=== PATIENT | female | born 1985 | race African-American/Black ===

== ENCOUNTER 2017-06-14 10:48 | Day surgery (SDC) | payer OTHER ==
[2017-06-14] MEDS ORDERED: ANCEF VIAL 1 GM ONE (10:52)
[2017-06-14] MEDS ORDERED: NS 50 ML IV + SPIKE MINIBAG* 50 ML IV ONE (10:52)
[2017-06-14] MEDS ORDERED: D5 1/2 NS 1000 ML 1,000 ML IV SCH ×2 (11:00→13:17)
[2017-06-14] MEDS ORDERED: PEPCID 20 MG IV PREMIX* 20 MG/50 ML BAG IV ONE (11:03)
[2017-06-14] MEDS ORDERED: REGLAN INJ 10 MG VIAL ONE (11:03)
[2017-06-14] MEDS: D5 1/2 NS 1000 ML 1,000 ML IV ONE (11:10)
[2017-06-14 11:15] VITALS: BMI 38.2
[2017-06-14] MEDS: ANCEF VIAL 1 GM 1 GM in NS 50 ML IV + SPIKE MINIBAG* 50 ML IV PRN ×2 (11:20→11:37)
[2017-06-14 11:23] LABS: BASOPHILS # (AUTO) 0.1 X10^3/uL (0.0-0.1); BASOPHILS % (AUTO) 1.2 % (0.2-1.0); EOSINOPHILS # (AUTO) 0.2 x10^3/uL (0.0-0.2); EOSINOPHILS % (AUTO) 2.1 % (0.9-2.9); HEMATOCRIT 36.4 % (36.0-47.0); HEMOGLOBIN 12.3 g/dL (12.0-16.0); LYMPHOCYTES # (AUTO) 2.8 X10^3/uL (1.3-2.9); LYMPHOCYTES % (AUTO) 25.8 % (21.0-51.0); MEAN CORPUSCULAR HEMOGLOBIN 29.6 pg (27.0-34.0); MEAN CORPUSCULAR HGB CONC 33.7 g/dL (33.0-35.0); MEAN CORPUSCULAR VOLUME 87.8 fL (80.0-100.0); MEAN PLATELET VOLUME 7.5 fL (7.4-11.0); MONOCYTES # (AUTO) 0.8 x10^3/uL (0.3-0.8); MONOCYTES % (AUTO) 7.9 % (0.0-13.0); NEUTROPHILS # (AUTO) 6.8 x10^3/uL (2.2-4.8); PLATELET COUNT 403 X10^3/uL (150.0-450.0); RED BLOOD COUNT 4.14 X10^6/uL (3.5-5.4); RED CELL DISTRIBUTION WIDTH 14.7 % (11.6-16.5); WHITE BLOOD COUNT 10.7 X10^3/uL (3.6-10.0)
[2017-06-14] MEDS ORDERED: FENTANYL INJ 250 mcg ONE (11:24)
[2017-06-14 11:36] LABS: ALANINE AMINOTRANSFERASE 20 Units/L (12-78); ALBUMIN 3.3 g/dL (3.4-5.0); ALKALINE PHOSPHATASE 65 Units/L (46-116); ASPARTATE AMINO TRANSFERASE 22 Units/L (15-37); BLOOD UREA NITROGEN 8 mg/dL (7-18); CALCIUM 8.7 mg/dL (8.5-10.1); CARBON DIOXIDE 27.4 mmol/L (21-32); CHLORIDE 102 mmol/L (98-107); COR CA(FOR HYPOALB) 9.3 mg/dL (8.5-10.1); CREATININE 0.83 mg/dL (0.55-1.02); SODIUM 136 mmol/L (136-145); TOTAL PROTEIN 7.1 g/dL (6.4-8.2); eGFR BLACK RACES > 60 (>60); eGFR NON BLACK RACES > 60 (>60)
[2017-06-14] MEDS ORDERED: BICITRA 30 ML PO ONE (11:37)
[2017-06-14] MEDS ORDERED: NS IRRIGATION 1000 ML 1,000 ML IR ONE (12:05)
[2017-06-14 12:10] LABS: BILIRUBIN,URINE NEGATIVE (NEGATIVE); BLOOD/HEMOGLOBIN,URINE 1+ (NEGATIVE); GLUCOSE, URINE NEGATIVE (NEGATIVE); KETONES,URINE NEGATIVE (NEGATIVE); LEUKOCYTE ESTERASE ,URINE NEGATIVE (NEGATIVE); NITRITES,URINE NEGATIVE (NEGATIVE); PROTEIN,URINE 1+ (NEGATIVE); UROBILINOGEN,URINE 1+ (NORMAL)
[2017-06-14] MEDS ORDERED: DECADRON INJ ONE (12:11)
[2017-06-14] MEDS ORDERED: LR 1000 ML IV 1,000 ML IV ONE (12:11)
[2017-06-14 12:28] LABS: APPEARANCE,URINE SLIGHTLY HAZY (CLEAR); COLOR,URINE YELLOW (YELLOW); RBC,URINE RARE /HPF (NEGATIVE)
[2017-06-14 12:29] LABS: AMORPHOUS SEDIMENT,UR TRACE /HPF (NEGATIVE); BACTERIA,URINE TRACE /HPF (NEGATIVE); SQUAMOUS EPITHELIAL CELL,UR MODERATE /HPF (NEGATIVE)
[2017-06-14] MEDS ORDERED: DILAUDID INJ ONE (12:45)
[2017-06-14] MEDS ORDERED: REGLAN INJ 10 MG VIAL IVP PRN (12:48)
[2017-06-14] MEDS ORDERED: BENADRYL INJ 50 MG VIAL IVP PRN ×2 (12:48→13:17)
[2017-06-14] MEDS ORDERED: PHENERGAN INJ 25 MG IVP PRN (12:48)
[2017-06-14] MEDS ORDERED: ZOFRAN INJ 4 MG VIAL IVP PRN ×2 (12:48→13:17)
[2017-06-14] MEDS: DILAUDID INJ IVP PRN ×2 (12:51→12:56)
[2017-06-14] MEDS ORDERED: DILAUDID INJ IVP ONE (13:01)
[2017-06-14] MEDS ORDERED: TORADOL 30 MG VIAL ONE (13:11)
[2017-06-14] MEDS ORDERED: NORCURON INJ 10 MG VIAL ONE (15:33)
[2017-06-14] MEDS ORDERED: DIPRIVAN VIAL ONE (15:33)
[2017-06-14] MEDS ORDERED: NEOSTIGMINE INJ ONE (15:33)
[2017-06-14] MEDS ORDERED: VERSED ONE (15:33)
[2017-06-14] MEDS ORDERED: LTA KIT LIDOCAINE 4% ONE (15:33)
[2017-06-14] MEDS ORDERED: SUPRANE IN ONE (15:33)
[2017-06-14] MEDS ORDERED: XYLOCAINE 2 % (PLAIN) ONE (15:33)
[2017-06-14] MEDS ORDERED: ROBINUL ONE (15:33)
[2017-06-14] MEDS ORDERED: QUELICIN (OR ANECTINE) ONE (15:33)
[2017-06-14] MEDS ORDERED: ZOFRAN INJ 4 MG VIAL ONE (15:33)
[2017-06-14] MEDS: PERCOCET TAB 5/325 MG PO PRN ×2 (16:19→20:20)
[2017-06-14] MEDS: D5 1/2 NS 1000 ML 1,000 ML IV SCH ×2 (17:33→23:20)
[2017-06-14] MEDS: TORADOL 30 MG VIAL IVP PRN ×2 (17:33→21:36)
[2017-06-15] MEDS: D5 1/2 NS 1000 ML 1,000 ML IV SCH (04:16)
[2017-06-15] MEDS: PERCOCET TAB 5/325 MG PO PRN ×2 (04:16→08:04)
[2017-06-15 05:57] LABS: BASOPHILS % (AUTO) 0.2 % (0.2-1.0); EOSINOPHILS % (AUTO) 0.3 % (0.9-2.9); HEMATOCRIT 34.4 % (36.0-47.0); HEMOGLOBIN 11.7 g/dL (12.0-16.0); LYMPHOCYTES # (AUTO) 1.8 X10^3/uL (1.3-2.9); LYMPHOCYTES % (AUTO) 12.1 % (21.0-51.0); MEAN CORPUSCULAR HEMOGLOBIN 29.9 pg (27.0-34.0); MEAN CORPUSCULAR VOLUME 87.8 fL (80.0-100.0); MONOCYTES # (AUTO) 0.9 x10^3/uL (0.3-0.8); MONOCYTES % (AUTO) 6.1 % (0.0-13.0); NEUTROPHILS % (AUTO) 81.3 % (42.0-75.0); PLATELET COUNT 410 X10^3/uL (150.0-450.0); RED BLOOD COUNT 3.92 X10^6/uL (3.5-5.4); RED CELL DISTRIBUTION WIDTH 14.8 % (11.6-16.5); WHITE BLOOD COUNT 14.8 X10^3/uL (3.6-10.0)
[2017-06-15 06:26] LABS: BLOOD UREA NITROGEN 6 mg/dL (7-18); CALCIUM 8.4 mg/dL (8.5-10.1); CARBON DIOXIDE 26.6 mmol/L (21-32); CHLORIDE 102 mmol/L (98-107); CREATININE 0.99 mg/dL (0.55-1.02); SODIUM 135 mmol/L (136-145); eGFR BLACK RACES > 60 (>60); eGFR NON BLACK RACES > 60 (>60)
[2017-06-15] MEDS ORDERED: BACTROBAN OINT TOP SCH (08:00)
[2017-06-15 08:17] VITALS: BP 125/72
[2017-06-15] MEDS ORDERED: COLACE CAP 100 MG PO SCH (09:00)
== END 2017-06-15 09:04 | disposition home or self-care (01) ==
LOC: SURG1 10:48 → MED/SURG 13:23 → SURG1 06-15 09:04
PROVIDERS: ATTEND Specialist
PROC: 0UB60ZZ Excision of Left Fallopian Tube, Open Approach (ICD-10-PCS; principal; 2017-06-14 11:00)
DX: O00.102 Left tubal pregnancy without intrauterine pregnancy (principal)
CPT/HCPCS: 36415; 80048; 80053; 81001; 85025; 86850; 86900; 86901; A4216; A4222; S0028; J0330; J0690; J1100; J1170; J1200; J1885; J2001; J2250; J2405; J2710; J2765; J3010; J3490; J7042; J7120

== ENCOUNTER 2018-12-22 06:20 | Inpatient (IN) ==
[2018-12-22] MEDS ORDERED: LR 1000 ML IV 1,000 ML ONE ×3 (06:31→08:13)
[2018-12-22] MEDS ORDERED: ANCEF 1 GRAM IV PREMIX* 1 G/50 ML BAG IV ONE ×2 (06:31→06:57)
[2018-12-22] MEDS ORDERED: XYLOCAINE-MPF 1% ONE (06:36)
[2018-12-22] MEDS ORDERED: D5 1/2 NS 1L W PITOCIN 20 UNITS/L 20 UNITS/1,000 ML BAG IV ONE (06:36)
[2018-12-22] MEDS ORDERED: DILAUDID INJ ONE (06:36)
[2018-12-22] MEDS ORDERED: D5 1/2 NS 1000 ML 1,000 ML IV SCH (06:37)
[2018-12-22] MEDS ORDERED: ANCEF VIAL 1 GRAM IVP ONE (06:37)
[2018-12-22 07:55] LABS: BILIRUBIN,URINE NEGATIVE (NEGATIVE); BLOOD/HEMOGLOBIN,URINE 1+ (NEGATIVE); GLUCOSE, URINE NEGATIVE (NEGATIVE); KETONES,URINE NEGATIVE (NEGATIVE); LEUKOCYTE ESTERASE ,URINE 1+ (NEGATIVE); NITRITES,URINE NEGATIVE (NEGATIVE); PH,URINE 6.5 (5.0 - 8.0); PROTEIN,URINE 3+ (NEGATIVE); UROBILINOGEN,URINE NORMAL (NORMAL)
[2018-12-22 08:04] LABS: APPEARANCE,URINE CLEAR (CLEAR); COLOR,URINE YELLOW (YELLOW); RBC,URINE 0-2 /HPF (NONE SEEN); SQUAMOUS EPITHELIAL CELL,UR NEGATIVE /HPF (NEGATIVE)
[2018-12-22 08:05] LABS: BACTERIA,URINE NEGATIVE /HPF (NEGATIVE); MUCUS,URINE FEW /HPF (NEGATIVE)
[2018-12-22] MEDS ORDERED: PHENERGAN INJ 25 MG IM PRN (09:02)
[2018-12-22] MEDS ORDERED: ZOFRAN INJ 4 MG VIAL IVP PRN ×2 (09:02→09:13)
[2018-12-22] MEDS ORDERED: BENADRYL INJ 50 MG VIAL IVP PRN ×2 (09:02→09:13)
[2018-12-22] MEDS ORDERED: REGLAN INJ 10 MG VIAL IVP PRN ×2 (09:02→09:13)
[2018-12-22] MEDS ORDERED: MYLICON TAB 80 MG CHEW PO PRN (09:13)
[2018-12-22] MEDS ORDERED: PERCOCET TAB 5/325 MG PO PRN (09:13)
[2018-12-22] MEDS ORDERED: ADACEL or BOOSTRIX TDaP VACCINE IM ONE (09:13)
[2018-12-22] MEDS ORDERED: NARCAN INJ IVP PRN (09:13)
[2018-12-22] MEDS ORDERED: DIPRIVAN VIAL ONE (09:17)
[2018-12-22] MEDS ORDERED: VERSED ONE (09:17)
[2018-12-22] MEDS ORDERED: NEO-SYNEPHRINE INJ ONE (09:17)
[2018-12-22] MEDS ORDERED: EPHEDRINE SULFATE INJ ONE (09:17)
[2018-12-22] MEDS ORDERED: ZOFRAN INJ 4 MG VIAL ONE (09:17)
[2018-12-22] MEDS ORDERED: PITOCIN ONE (09:17)
[2018-12-22] MEDS ORDERED: D5 1/2 NS 1000 ML 1,000 ML with PITOCIN 20 UNITS IV SCH ×2 (10:00)
[2018-12-22] MEDS: TORADOL 30 MG VIAL IVP PRN (20:07)
[2018-12-22] MEDS: ZANTAC PO SCH (20:09)
[2018-12-23] MEDS ORDERED: ADACEL or BOOSTRIX TDaP VACCINE IM ONE (00:19)
[2018-12-23] MEDS: TORADOL 30 MG VIAL IVP PRN (05:50)
[2018-12-23] MEDS ORDERED: MOTRIN TAB 800 MG PO PRN (07:53)
[2018-12-23] MEDS: ZANTAC PO SCH ×2 (08:34→20:15)
[2018-12-23] MEDS: COLACE CAP 100 MG PO SCH ×2 (08:34→20:15)
[2018-12-23] MEDS: PRENATAL PLUS PO SCH (08:34)
[2018-12-23] MEDS: PERCOCET TAB 5/325 MG PO PRN ×2 (13:15→20:16)
[2018-12-23] MEDS: BACTROBAN CREAM TOP SCH ×2 (13:34→21:21)
[2018-12-24] MEDS: PERCOCET TAB 5/325 MG PO PRN ×2 (02:40→07:16)
[2018-12-24] MEDS: BACTROBAN CREAM TOP SCH (05:44)
[2018-12-24] MEDS: ZANTAC PO SCH (08:37)
[2018-12-24] MEDS: PRENATAL PLUS PO SCH (08:37)
[2018-12-24] MEDS: COLACE CAP 100 MG PO SCH (08:37)
[2018-12-24 10:38] VITALS: BP 114/75
== END 2018-12-24 12:34 | disposition home or self-care (01) | DRG 785 ==
LOC: LD 06:20 → MED/SURG 09:15
PROVIDERS: ADMIT Specialist; ATTEND Specialist
DX: O34.211 Maternal care for low transverse scar from previous cesarean delivery; B95.1 Streptococcus, group B, as the cause of diseases classified elsewhere; N85.8 Other specified noninflammatory disorders of uterus; Z3A.38 38 weeks gestation of pregnancy; Z37.0 Single live birth; O99.824 Streptococcus B carrier state complicating childbirth; Z01.818 Encounter for other preprocedural examination; O24.410 Gestational diabetes mellitus in pregnancy, diet controlled; O99.613 Diseases of the digestive system complicating pregnancy, third trimester; Z30.2 Encounter for sterilization
CPT/HCPCS: 36415; 80048; 81001; 85014; 85018; 85025; 85610; 85730; 86592; 86850; 86900; 86901; 87086; 90715; A4216; A4222; S0197; J0690; J1170; J1200; J1885; J2250; J2370; J2405; J2590; J2704; J3490; J7120